=== PATIENT | male | born 1970 | race African-American/Black ===

== ENCOUNTER → 2017-03-18 | Outpatient (CLI) | payer OTHER ==
--- NOTE | ~2017-03-18 | US85 ---
[facility] A Service of [facility] & [facility] RADIOLOGY TEXT RESULTS PATIENT: MARAL KHAN JR GLOVER LOCATION: CNIV : 70 UNIT #: [id number] AGE: [address]: FIFI CHOWDHURY APRN SEX: M ORDER DR: [id number] [facility] [address]. [place], [place] [address] [id number] O MR#: [id number] Acc #: [id number] NAME: MARAL KHAN : 1970 SEX: M STUDY DATE/TIME: 03/18/2017 14:55 UNIT: CNIV ROOM: STUDY DESCRIPTION: LE Veins Unilat or Ltd Stdy Attending Physician: Fifi Chowdhury Aprn Referring Physician: Fifi Chowdhury Aprn Ordering Physician: Fifi Chowdhury Aprn Primary Care Physician: Fifi Chowdhury Aprn MEDICAL IMAGING REPORT This report is preliminary unless electronic signature is present EXAM Left lower extremity venous duplex 03/18/2017 HISTORY Left lower extremity pain and edema for 1 week. No known injury. Evaluate for deep vein thrombosis. TECHNIQUE Venous ultrasound examination of the left lower extremity was performed using grayscale, spectral Doppler and color flow Doppler imaging. FINDINGS The examination is negative. There is no evidence of left lower extremity deep venous thrombus from the groin to the lower calf. Visualized greater saphenous vein is also patent. IMPRESSION Negative examination. No evidence of left lower extremity deep venous thrombosis. Dictated by... Attila De Souza M.D. THIS IS AN ELECTRONICALLY VERIFIED REPORT Attila De Souza M.D. at 03/19/2017 10:19 AM SHIREEN/partha TD: 03/18/2017 18:45 JOB #: [id number] MEDICAL IMAGING REPORT Page 1 of 1 COPY
== END | disposition home or self-care (01) ==
LOC: CNIV 14:22
DX: M79.605 Pain in left leg (principal); M79.89 Other specified soft tissue disorders
CPT/HCPCS: 93971